=== PATIENT | male | born 1960 | race African-American/Black ===

== ENCOUNTER 2021-01-27 14:42 | Outpatient (REF) | payer OTHER, SELFPAY ==
--- NOTE | ~2021-01-27 | XR_ITS ---
EXAMINATION: XR FOOT, RIGHT CLINICAL INFORMATION: Pain COMPARISON: None TECHNIQUE: AP, lateral, and oblique views of the right foot. FINDINGS: No visible acute fracture or dislocation. Normal alignment. Mild first IP joint arthritis. Mild dorsal talar neck spurring. XR/XR foot RT min 3V IMPRESSION: No evidence of acute fracture.
== END 2021-01-27 14:43 | disposition home or self-care (01) ==
LOC: HO.HMGCX 14:42
PROVIDERS: Visit Provider Hospitalist
DX: M79.671 Pain in right foot (principal)
CPT/HCPCS: 73630